=== PATIENT | male | born 1985 | race Two or more races ===

== ENCOUNTER 2021-03-19 16:18 | Emergency (ER) | payer MEDICAID ==
[~2021-03-19] VITALS: Ht 172.7 cm; Wt 111.6 kg
[2021-03-19] MEDS ORDERED: CEPHALEXIN 250 MG CAP PO ONE (19:45)
[2021-03-19] MEDS ORDERED: TETANUS-DIPTH-ACEL PERTUSSIS 0.5ML SYR Tdap IM ONE (19:45)
[2021-03-19] MEDS ORDERED: LIDOCAINE HCL 1 % PF INJ 2ML AMP IJ ONE (19:45)
[2021-03-19] MEDS ORDERED: LIDOCAINE 1% HCL (LOCAL ANESTH.) INJ 20ML MDV ONE (21:29)
[2021-03-19] MEDS ORDERED: CEPH-322 PO (22:27)
[2021-03-19] MEDS ORDERED: HYDR1TAB97 PO ×2 (22:27→22:29)
[2021-03-19] MEDS ORDERED: IBUP600T27 PO (22:27)
[2021-03-19] MEDS ORDERED: BACITRACIN TOP OINT 1 UD PKG TOP ONE (22:43)
[2021-03-19 23:03] VITALS: BP 140/76
== END 2021-03-19 22:45 | disposition home or self-care (01) ==
LOC: ER 16:18
DX: S61.221A Laceration with foreign body of left index finger without damage to nail, initial encounter (principal); Z79.1 Long term (current) use of non-steroidal anti-inflammatories (NSAID); Z79.2 Long term (current) use of antibiotics; Z79.899 Other long term (current) drug therapy; W25.XXXA Contact with sharp glass, initial encounter; Y93.89 Activity, other specified; Y92.89 Other specified places as the place of occurrence of the external cause; Y99.8 Other external cause status
CPT/HCPCS: 10120; 73140; 90471; 90715; 99284; J2001

== ENCOUNTER 2021-08-09 21:17 | Emergency (ER) | payer SELFPAY ==
[~2021-08-09] VITALS: Ht 172.7 cm; Wt 111.6 kg
[2021-08-09 21:17] VITALS: BP 151/94
[~2021-08-09 21:17] MED LIST: CEPH-322 PO; HYDR1TAB97 PO; IBUP600T27 PO
== END 2021-08-10 02:42 | disposition home or self-care (01) ==
LOC: ER 21:18
DX: S60.451A Superficial foreign body of left index finger, initial encounter (principal); X58.XXXA Exposure to other specified factors, initial encounter; Y93.89 Activity, other specified; Y92.89 Other specified places as the place of occurrence of the external cause; Y99.8 Other external cause status
CPT/HCPCS: 10120; 73140

== ENCOUNTER 2024-12-25 08:27 | Inpatient (IN) | payer MEDICAID, OTHER ==
[~2024-12-25] VITALS: Ht 172.7 cm; Wt 126.1 kg
[~2024-12-25 08:27] MED LIST changes: -CEPH-322 PO; +CEPH250C PO; +IBUP-1454 PO; -IBUP600T27 PO
[2024-12-25] MEDS: ONDANSETRON HCL 4 MG/2 ML VIAL IV ONE (08:55)
[2024-12-25] MEDS: TAMSULOSIN HYDROCHLORIDE 0.4 MG CAP PO ONE ×2 (08:56→14:36)
[2024-12-25] MEDS: SODIUM CHLORIDE 0.9% 1,000 ML IV ONE (09:03)
[2024-12-25 09:07] VITALS: PULSE 71; RESP 16; O2SAT 98
--- NOTE | 2024-12-25 09:14 | ED.PDOC ---
GI ASSESSMENT HPI Comments HPI: This is a 39 year old male presenting to the ED with chief complaint of abdominal pain. Patient reports that he has been experiencing left sided abdominal pain since yesterday. Patient relays that his pain resolved yesterday, however, this morning his pain returned while at work. Patient states that his pain is similar to previous kidney stones he had in the past. Patient denies any N/V/D, flank pain, dysuria, hematuria, or fever. Initial Vitals BP: 169/105 HR: 83 RR: 18 O2: 98% Temp: 98.1F Past Medical History: Kidney Stones, DM Past Surgical History: LASIK Social History: Denies ETOH, smoking, and drug use. Medications: None Allergies: NKDA HPI: Poor Historian. REVIEW OF SYSTEMS: CONSTITUTIONAL: Denies acute: fever, diaphoresis, chills, generalized weakness. HEAD: Denies acute: headache, photophobia Eyes: Denies acute: Double vision, vision loss, eye pain, eye discharge. EARS: Denies acute: tinnitus, hearing loss, ear discharge, ear pain, THROAT: Denies acute: sore throat, swelling, difficulty swallowing , pain with swallowing, change in voice. NECK: Denies acute: neck pain, neck swelling, stiff neck. HEART: Denies acute : chest pain, palpitations, LUNGS: Denies acute: SOB, wheezing, cough, hemoptysis ABDOMEN: Denies acute: Vomiting, diarrhea, melena , hematemesis, hematochezia SKIN: Denies acute: rash, redness, lesions, itchiness. EXTREMITIES: Denies acute: calf pain, numbness, tingling, weakness, denies pain in extremity. Denies acute: Low back pain. Neuro: Denies acute: focal neurological deficit, motor or sensory focal neurological deficit, tremors, seizure like activity, confusion, dizziness, change in mental status, loss of bowel or bladder function, cauda equina like symptoms. : Denies acute: dysuria, hematuria, flank pain, increase in urinary frequency. PSYCH: Denies acute: hallucination, suicidal ideation, homicidal ideation. PHYSICAL EXAM: General: ----moderate to severe----acute distress, awake and alert. Head: normocephalic, atraumatic. Neck: supple, trachea is midline, no swelling. Throat: Normal phonation. Eyes:, no erythema, no purulent discharge, no proptosis, no icterus. Heart: regular rate, regular rhythm, no significant murmur appreciated. Lungs: no apparent respiratory distress, Able to speak in full sentences. No wheezing, no rhonchi, no crackles. No stridors Clear to auscultation bilaterally. Abdomen: Right-sided tender to palpation, non distended, soft, no guarding, no rebound, + bowel sounds. Neuro: Awake, Alert, oriented to name, self, situation, follows commands GCS=15. Speech is normal. Skin: no petechia, no purpura, no cyanosis, non-pale, not jaundice. Lower extremities: --no - Pitting edema no deformity, no focal swelling, no calf TTP. Makes eye contact. moves all four extremities. Face: no apparent facial droop. No CVA tenderness to percussion bilaterally. Ambulating in the ED independently. ED COURSE: DISCLAIMER: This medical document was created using an electronic medical record system with voice recognition software and computerized dictation system. Although this document has been carefully reviewed, there might still be some phonetic and typographical errors. Occasional wrong-word or "sound-alike" substitutions may have occurred due to the inherent limitations of voice recognition software. These areas are purely typographical due to imperfections of the software programs and do not reflect any compromise in the patient's medical care. Please read the chart carefully and recognize, using context, where these substitutions have occurred. Chief Complaint: Abdominal Pain Time Seen by MD: 08:31 Primary Care Provider: ERNIE Reviewed Notes: Medications, Allergies Allergies: Coded Allergies: NO KNOWN ALLERGIES (Unverified , 03/19/21) Home Meds Active Scripts Hydrocodone-Acetaminophen (Hydrocodone/Acetaminophen 5-325 mg) 1 Tab Tab, 1 TAB PO Q6HPRN PRN for 1 Day, #4 TAB Prov:KATHARINE DICKINSON MD 03/19/21 Ibuprofen (Ibuprofen) 600 Mg Tab, 600 MG PO Q6HPRN PRN for 7 Days, #30 MG 0 Refills Prov:KATHARINE DICKINSON MD 03/19/21 Cephalexin (KEFLEX CAPSULE) 250 Mg Cp, 2 CAP PO QID for 7 Days, #2 CAP Take 2 caps PO QID x 7 days. Prov:KATHARINE DICKINSON MD 03/19/21 Information Source: Patient Mode of Arrival: Ambulatory Was a procedure done? Was a procedure done?: No X-Ray, Labs, Meds, VS Vital Signs Date Time Temp Pulse Resp B/P (MAP) Pulse Ox O2 Delivery O2 Flow Rate FiO2 12/25/24 09:50 149/95 12/25/24 09:07 71 16 98 Room Air* 0 21 12/25/24 08:28 98.1 83 18 169/105 98 98.1 Lab Test 12/25/24 08:54 Range/Units White Blood Count 8.4 4.4-10.8 10^3/uL Red Blood Count 5.87 4.5-5.90 10^6/uL Hemoglobin 17.3 13.5-17.5 g/dL Hematocrit 50.5 41.0-53.0 % Mean Corpuscular Volume 86.1 80.0-100.0 fL Mean Corpuscular Hemoglobin 29.5 28.0-32.0 pg Mean Corpuscular Hemoglobin Concent 34.3 32.0-36.0 g/dL Red Cell Distribution Width 13.6 11.8-14.3 % Platelet Count 221 140-450 10^3/uL Mean Platelet Volume 9.0 6.9-10.8 fL Neutrophils (%) (Auto) 59.0 37.0-80.0 % Lymphocytes (%) (Auto) 32.5 10.0-50.0 % Monocytes (%) (Auto) 6.9 0.0-12.0 % Eosinophils (%) (Auto) 0.9 0.0-7.0 % Basophils (%) (Auto) 0.7 0.0-2.0 % Neutrophils # (Auto) 4.9 1.6-8.6 10 ^3/uL Lymphocytes # (Auto) 2.7 0.4-5.4 10 ^3/uL Monocytes # (Auto) 0.6 0-1.3 10 ^3/uL Eosinophils # (Auto) 0.1 0-0.8 10 ^3/uL Basophils # (Auto) 0.1 0-0.2 10 ^3/uL Nucleated Red Blood Cells 0.1 % Sodium Level 139 136-145 mmol/L Potassium Level 3.9 3.5-5.1 mmol/L Chloride Level 106 98-107 mmol/L Carbon Dioxide Level 25 20-31 mmol/L Anion Gap 8 5-15 Blood Urea Nitrogen 8 L 9-23 mg/dL Creatinine 1.10 0.700-1.30 mg/dL Glomerular Filtration Rate Calc 87 >90 mL/min BUN/Creatinine Ratio 7.3 L 10.0-20.0 Serum Glucose 183 H 74-106 mg/dL Lactic Acid Level 1.6 0.4-2.0 mmol/L Calcium Level 9.5 8.7-10.4 mg/dL Total Bilirubin 0.8 0.2-1.0 mg/dL Aspartate Amino Transferase (AST) 67 H 13-40 U/L Alanine Aminotransferase (ALT) 96 H 7-40 U/L Alkaline Phosphatase 162 H 46-116 U/L Troponin I High Sensitivity 4 </=54 ng/L Total Protein 7.9 5.7-8.2 g/dL Albumin 4.9 H 3.2-4.8 g/dL Lipase Pending Current Medications Medications (Trade) Dose Ordered Sig/Pavan Route Start Time Stop Time Status Last Admin Sodium Chloride 1,000 ml @ 1,000 mls/hr Q1H ONCE IV 12/25/24 09:00 12/25/24 09:59 12/25/24 09:03 Ondansetron HCl (Zofran) 8 mg ONCE ONCE IV 12/25/24 09:00 12/25/24 09:01 DC 12/25/24 08:55 Tamsulosin HCl (Flomax) 0.4 mg ONCE ONCE PO 12/25/24 09:00 12/25/24 09:01 DC 12/25/24 08:56 Fentanyl Citrate 100 mcg ONCE ONCE IV 12/25/24 09:15 12/25/24 09:16 DC 12/25/24 09:50 Time of 1ST Reevaluation: 10:10 Reevaluation 1ST: Unchanged Patient Education/Counseling: Diagnosis, Treatment Family Education/Counseling: No Family Present Departure 1 Departure Time of Disposition: 09:54 Impression: Primary Impression: Hydronephrosis with renal and ureteral calculous obstruction Additional Impression: Hydroureteronephrosis Disposition: ADMITTED INPATIENT Admit to: [facility] Condition: Guarded Discharged With: Self Critical Care Note Critical Care Time?: No I personally scribed for HUGO MADDEN DO ([email or web address]) on 12/25/24 at 09:14. Electronically submitted by Lemuel Stephen ([email or web address]). HUGO MADDEN DO Dec 25, 2024 09:14
[2024-12-25 09:23] LABS: Hematocrit 50.5 % (41.0-53.0); Hemoglobin 17.3 g/dL (13.5-17.5); Mean Corpuscular Hemoglobin 29.5 pg (28.0-32.0); Mean Corpuscular Volume 86.1 fL (80.0-100.0); Nucleated Red Blood Cells % 0.1 %
[2024-12-25 09:37] LABS: Anion Gap 8 (5-15); BUN/Creatinine Ratio 7.3 (10.0-20.0); Calcium 9.5 mg/dL (8.7-10.4); Carbon Dioxide 25 mmol/L (20-31); Chloride 106 mmol/L (98-107); Potassium 3.9 mmol/L (3.5-5.1); Sodium 139 mmol/L (136-145); Total Protein 7.9 g/dL (5.7-8.2)
[2024-12-25 09:38] LABS: Bilirubin, Total 0.8 mg/dL (0.2-1.0)
[2024-12-25 09:44] LABS: Alanine Aminotransferase 96 U/L (7-40); Albumin 4.9 g/dL (3.2-4.8); Alkaline Phosphatase 162 U/L (46-116); Blood Urea Nitrogen 8 mg/dL (9-23); Glucose 183 mg/dL (74-106)
--- NOTE | 2024-12-25 09:49 | DVH ---
Exam: CT CT AB PEL WO CON-NO ORAL OR IV History: LUQ pain h/o Kid stones Comparison Study: None Technique: Multidetector spiral CT of the abdomen was performed from lung bases to pubic symphysis. I maging was performed without IV contrast. Axial, coronal and sagittal multiplanar reformats were obta ined from the axial data set by the technologist. Radiation Dose : 1. Abdomen/Pelvis: CTDIvol 26.32 mGy, DLP 1618.84 mGy*cm. Findings: Evaluation of solid organs is limited due to lack of intravenous contrast use. Lung Bases: No acute or significant lung base finding. Normal heart size. No pleural or pericardial effusion. Liver: The liver is enlarged, measuring 23.0 cm in craniocaudal dimension. Diffuse hepatic steatosis. No focal lesions. Gallbladder and Biliary Tree: Unremarkable Spleen: Unremarkable Pancreas: The pancreas is grossly normal in appearance. Adrenal Glands: Unremarkable Kidneys: Moderate left hydroureteronephrosis secondary to a partially obstructing distal ureteral peña culus measuring approximately 3 mm just proximal to the level of the ureterovesicular junction. The r ight kidney is grossly normal without calculi or hydronephrosis. Bladder: Grossly unremarkable for degree of distention. Bowel: The stomach is grossly normal in appearance. Small bowel and colon are normal in caliber and d istribution. The appendix is not visualized; however, no secondary findings of acute appendicitis aron ntified. Ascites: Absent Lymphadenopathy: No mesenteric, retroperitoneal or periportal lymphadenopathy. Abdominal Wall and Mesentery: Unremarkable. Vasculature: The visualized abdominal aorta is normal in size and caliber. Evaluation of abdominal a nd pelvic vessels is limited due to lack of intravenous contrast. Pelvic Organs: Unremarkable Musculoskeletal: No aggressive focal bony lesions, acute fractures or dislocation. IMPRESSION: 1. Moderate left hydroureteronephrosis secondary to a partially obstructing distal ureteral calculus just proximal to the level of the ureterovesicular junction. 2. Hepatomegaly and hepatic steatosis. Radiation optimization: All CT scans at this facility use at least one of these dose optimization rip hniques: automated exposure control mA and/or kV adjustment per patient size (includes targeted exam s where dose is matched to clinical indication) or iterative reconstruction.
[2024-12-25] MEDS: fentaNYL CITRATE 100 MCG/2 ML VL IV ONE (09:50)
[2024-12-25] MEDS: cefTRIAXone 1GM/50ML D5W 50 ML IV ONE ×2 (10:24→13:22)
[2024-12-25 10:29] LABS: Lipase 35 U/L (12-53)
[2024-12-25 11:03] LABS: Urine Protein, UAD 1+ (Negative); Urine WBC Clumps PRESENT /hpf (None Seen)
[2024-12-25] MEDS ORDERED: NITROGLYCERIN 0.4 MG SL TAB SL PRN (12:15)
[2024-12-25] MEDS ORDERED: DOCUSATE SOD 100 MG CAP PO PRN (12:15)
[2024-12-25] MEDS ORDERED: KETOROLAC TROMETH 30 MG/ML 1ML VIAL IV PRN (12:15)
[2024-12-25] MEDS ORDERED: ONDANSETRON HCL 4 MG/2 ML VIAL IV PRN (12:15)
[2024-12-25] MEDS ORDERED: DEXTROSE (50%) 50ML SYRG IV PRN (12:15)
--- NOTE | 2024-12-25 12:22 | DVHHP2 ---
History of Present Illness Reason for Visit: Abdominal pain History of Present Illness 39-year-old male past medical history diabetes kidney stones Lasix surgery chief complaint patient comes in with left flank pain he has been going on 2-1/2 hours prior to arrival he stated it started yesterday it self-resolved but when he was at work the pain got more worse it was like a sharp pain patient states he had this symptom before three years ago that was given him some Flomax and they did a urology procedure he currently denies any chest pain no shortness with the breath denies any blood in urination but difficulty with nerve urination patient states the pain is stabbing movement makes the pain worse nothing improves the pain when in ED patient was given ceftriaxone Flagyl Flomax Zofran normal saline CBC was unremarkable glucose was elevated at 183 AST was 61 ALT mild elevation alkaline phosphatase [address] scan of the abdomen pelvis shows moderate left hydronephrosis secondary to partial obstructing distal stone in the uvj hepatomegaly hepatic steatosis with these findings we will admit and ask for Urology evaluatio. Past Medical History See HPI above Past Surgical History See HPI above Family History Reviewed, non-contributory to the management of this case. Past Social History The patient lives at home, denies smoking, alcohol or illicit drugs abuse. Review of Systems Constitutional: No: Fever, Chills, Sweats, Weakness, Malaise, Other Eyes: No: Pain, Vision change, Conjunctivae inflammation, Eyelid inflammation, Other, Redness ENT: No: Ear pain, Ear discharge, Nose pain, Nose discharge, Nose congestion, Mouth pain, Mouth swelling, Throat pain, Throat swelling, Other Respiratory: No: Cough, Dry, Shortness of breath, SOB with excertion, Wheezing, Hemoptysis, Pleuritic Pain, Sputum, Wheezing, Other Cardiovascular: No: Chest Pain, Palpitations, Orthopnea, Paroxysmal Noc. Dyspnea, Edema, Lt Headedness, Other Gastrointestinal: Nausea, Vomiting, Abdominal Pain; No: Diarrhea, Constipation, Melena, Hematochezia, Other Genitourinary: Dysuria; No Frequency, No Incontinence, No Hematuria, No Retention, No Other Musculoskeletal: No: other, neck pain, shoulder pain, arm pain, back pain, hand pain, leg pain, foot pain Skin: No: Rash, Lesions, Jaundice, Bruising, Other Neurological: No: Weakness, Numbness, Incoordination, Change in speech, Confus ion, Seizures, Other Allergies: Coded Allergies: NO KNOWN ALLERGIES (Unverified , 03/19/21) Exam Vital Signs Vital Signs Date Time Temp Pulse Resp B/P (MAP) Pulse Ox O2 Delivery O2 Flow Rate FiO2 12/25/24 10:26 98.4 77 16 145/89 (107) 97 98.4 12/25/24 09:07 Room Air* 0 21 General Appearance: Alert, Oriented X3, Cooperative, No acute distress HEENT: Atraumatic, PERRLA, EOMI, Mucous membr. moist/pink Respiratory: Clear to auscultation, Normal air movement Cardiovascular: Regular rate, Normal S1, Normal S2, No murmurs Abdominal: Normal bowel sounds, Soft, No tenderness, No hepatospenomegaly, No masses, Other (Left CVA tenderness) Extremities: No clubbing, No cyanosis, No edema, Normal pulses, No tenderness/swelling Skin: No rashes, No breakdown, No significant lesion Neuro: Normal gait, Normal speech, Strength at 5/5 X4 ext, Normal tone, Sensation intact, Cranial nerves 3-12 NL Psych/Mental Status: Mental status NL, Mood NL Labs/Xrays CT scan abdomen pelvis shows left hydronephrosis with secondary partially obstructing kidney stone in the distal ureter I reviewed labs, imaging CT scan abdomen pelvis, EKG and all diagnostic studies on this patient from ED records and the medical chart Labs Test 12/25/24 08:54 12/25/24 08:35 Range/Units White Blood Count 8.4 4.4-10.8 10^3/uL Red Blood Count 5.87 4.5-5.90 10^6/uL Hemoglobin 17.3 13.5-17.5 g/dL Hematocrit 50.5 41.0-53.0 % Mean Corpuscular Volume 86.1 80.0-100.0 fL Mean Corpuscular Hemoglobin 29.5 28.0-32.0 pg Mean Corpuscular Hemoglobin Concent 34.3 32.0-36.0 g/dL Red Cell Distribution Width 13.6 11.8-14.3 % Platelet Count 221 140-450 10^3/uL Mean Platelet Volume 9.0 6.9-10.8 fL Neutrophils (%) (Auto) 59.0 37.0-80.0 % Lymphocytes (%) (Auto) 32.5 10.0-50.0 % Monocytes (%) (Auto) 6.9 0.0-12.0 % Eosinophils (%) (Auto) 0.9 0.0-7.0 % Basophils (%) (Auto) 0.7 0.0-2.0 % Neutrophils # (Auto) 4.9 1.6-8.6 10 ^3/uL Lymphocytes # (Auto) 2.7 0.4-5.4 10 ^3/uL Monocytes # (Auto) 0.6 0-1.3 10 ^3/uL Eosinophils # (Auto) 0.1 0-0.8 10 ^3/uL Basophils # (Auto) 0.1 0-0.2 10 ^3/uL Nucleated Red Blood Cells 0.1 % Sodium Level 139 136-145 mmol/L Potassium Level 3.9 3.5-5.1 mmol/L Chloride Level 106 98-107 mmol/L Carbon Dioxide Level 25 20-31 mmol/L Anion Gap 8 5-15 Blood Urea Nitrogen 8 L 9-23 mg/dL Creatinine 1.10 0.700-1.30 mg/dL Glomerular Filtration Rate Calc 87 >90 mL/min BUN/Creatinine Ratio 7.3 L 10.0-20.0 Serum Glucose 183 H 74-106 mg/dL Lactic Acid Level 1.6 0.4-2.0 mmol/L Calcium Level 9.5 8.7-10.4 mg/dL Total Bilirubin 0.8 0.2-1.0 mg/dL Aspartate Amino Transferase (AST) 67 H 13-40 U/L Alanine Aminotransferase (ALT) 96 H 7-40 U/L Alkaline Phosphatase 162 H 46-116 U/L Troponin I High Sensitivity 4 </=54 ng/L Total Protein 7.9 5.7-8.2 g/dL Albumin 4.9 H 3.2-4.8 g/dL Lipase 35 12-53 U/L Urine Color Light-orange Yellow Urine Clarity Ex.turbid Clear Urine pH 5.5 5.0-9.0 Urine Specific Bath 1.031 1.001-1.035 Urine Protein 1+ H Negative Urine Ketones Negative Negative Urine Blood 2+ H Negative /uL Urine Nitrite Negative Negative Urine Bilirubin Negative Negative Urine Urobilinogen Normal Negative mg/dL Urine Leukocyte Esterase Negative Negative /uL Urine RBC 12 0 - 3 /hpf Urine WBC Clumps Present None Seen /hpf Urine Microscopic WBC 141 H 0-3 /HPF Urine Squamous Epithelial Cells None seen <5 /hpf Urine Bacteria None seen None Seen /hpf Urine Mucus Few None Seen Urine Glucose Trace Normal mg/dL SEPSIS Sepsis Screen Date sepsis recognized/suspect: Dec 25, 2024 Time Sepsis recognized/suspect: 828 Recent Procedure: No On Antibiotic Therapy: No Respiratory Rate >20: No Heart Rate >90: No Temp<36 C (96.8 F) or >38.3 C: No SBP <90 or MAP <65 mmHG: No New Acute Mental Status Change: No Is the patient on CPAP, BIPAP,: No Physician Orders Global Expansion Sales Director (12/25/24 ) Ct Ab Pel Wo Con-No Oral Or Iv (12/25/24 08:47) Electrocardigram (12/25/24 08:47) Admit (12/25/24 12:15) Allergies (12/25/24 12:15) Code Status (12/25/24 12:15) 0.9% Ns 1000 Ml (12/25/24 12:15) Ondansetron Hcl (Zofran) (12/25/24 12:15) Docusate Sodium Capsule (Colace Capsule) (12/25/24 12:15) Complete Blood Count (12/26/24 04:00) Comprehensive Metabolic Panel (12/26/24 04:00) Condition: Stable (12/25/24 12:15) BRP (12/25/24 12:15) Morphine Sulfate Injection (12/25/24 12:15) Sequential Compression Device (12/25/24 ) Nitroglycerin Sublingual (Ntrostat Subli (12/25/24 12:15) Stat Ekg For Chest Pain (12/25/24 12:15) Notify Md Of Changes From Base (12/25/24 12:15) Muffler Installer For 24 Hours (12/25/24 12:15) Emergency Dysrhythmia Protocol (12/25/24 12:15) Rhythm Strips Once Every Shift (12/25/24 12:15) Oxygen By Nasal Cannula (12/25/24 12:15) Tamsulosin Hydrochloride (Flomax) (12/25/24 12:15) Tamsulosin Hydrochloride (Flomax) (12/25/24 18:00) Ketorolac Injection (Toradol Injection) (12/25/24 12:15) Glucose Blood (Accu-Chek Comfort Curve T (12/25/24 17:00) Mild Sliding Scale (12/25/24 17:00) Dextrose 50% Syringe (12/25/24 12:15) Ceftriaxone Ivpb Rocephin (12/26/24 09:00) Ceftriaxone Ivpb Rocephin (12/25/24 12:15) Vital Signs Date Time Temp Pulse Resp B/P (MAP) Pulse Ox O2 Delivery O2 Flow Rate FiO2 12/25/24 10:26 98.4 77 16 145/89 (107) 97 98.4 12/25/24 09:50 149/95 12/25/24 09:07 71 16 98 Room Air* 0 21 12/25/24 08:28 98.1 83 18 169/105 98 98.1 Laboratory Tests Test 12/25/24 08:54 Lactic Acid Level 1.6 mmol/L (0.4-2.0) White Blood Count 8.4 10^3/uL (4.4-10.8) Medications Medications Dose Ordered Sig/Pavan Route Start Time Stop Time Status Last Admin Dose Admin Ceftriaxone Sodium 50 ml @ 100 mls/hr ONCE ONCE IV 12/25/24 10:00 12/25/24 10:29 DC 12/25/24 10:24 100 MLS/HR Fentanyl Citrate 100 mcg ONCE ONCE IV 12/25/24 09:15 12/25/24 09:16 DC 12/25/24 09:50 100 MCG Ondansetron HCl 8 mg ONCE ONCE IV 12/25/24 09:00 12/25/24 09:01 DC 12/25/24 08:55 8 MG Sodium Chloride 1,000 ml @ 1,000 mls/hr Q1H ONCE IV 12/25/24 09:00 12/25/24 09:59 DC 12/25/24 09:03 1,000 MLS/HR Tamsulosin HCl 0.4 mg ONCE ONCE PO 12/25/24 09:00 12/25/24 09:01 DC 12/25/24 08:56 0.4 MG Assessment/Plan Assessment/Plan Acute left obstructing stone 2/[address] scan found ot have left pelviectasis ua with bacteria and leuks ordered urine culture fu results ordered toradol x3 days ordered levaquin for now ordered ivf strict i/o's ordered morphine as needed for pain ordered flomax ordered urology consult acute transaminitis likely hepatomegaly/hepatitic outpt follow up with gi chronic problems dm ISS fen/ppx diet toradol ivf no gi ppx since no hx of gerds or gi bleed no dvt ppx since pt is ambulatory plan admit to medicine for iv antibiotics for infection Plan discussed with: Patient My Orders Orders - DAIN KAY DNP Procedure Category Date Status Time Admit ADMIT 12/25/24 Transmitted 12:15 Allergies TONEY 12/25/24 Transmitted 12:15 Code Status CODE 12/25/24 Transmitted 12:15 0.9% Ns 1000 Ml PHA 12/25/24 Transmitted 12:15 Ondansetron Hcl PHA 12/25/24 Transmitted (Zofran) 12:15 Docusate Sodium PHA 12/25/24 Transmitted Capsule (Colace 12:15 Complete Blood Count LAB 12/26/24 Verified 04:00 Comprehensive LAB 12/26/24 Verified Metabolic Panel 04:00 Condition: Stable TONEY 12/25/24 Transmitted 12:15 BRP TONEY 12/25/24 Transmitted 12:15 Morphine Sulfate PHA 12/25/24 Transmitted Injection 12:15 Sequential TONEY 12/25/24 Transmitted Compression Device Nitroglycerin PHA 12/25/24 Transmitted Sublingual (Ntrostat 12:15 Stat Ekg For Chest TONEY 12/25/24 Transmitted Pain 12:15 Notify Md Of Changes TONEY 12/25/24 Transmitted From Base 12:15 Muffler Installer For TONEY 12/25/24 Transmitted 24 Hours 12:15 Emergency Dysrhythmia TONEY 12/25/24 Transmitted Protocol 12:15 Rhythm Strips Once TONEY 12/25/24 Transmitted Every Shift 12:15 Oxygen By Nasal RT 12/25/24 Transmitted Cannula 12:15 Tamsulosin PHA 12/25/24 Transmitted Hydrochloride (Flomax) 12:15 Tamsulosin PHA 12/25/24 Transmitted Hydrochloride (Flomax) 18:00 Ketorolac Injection PHA 12/25/24 Transmitted (Toradol Injection) 12:15 Glucose Blood PHA 12/25/24 Transmitted (Accu-Chek Comfort 17:00 Mild Sliding Scale PHA 12/25/24 Transmitted 17:00 Dextrose 50% Syringe PHA 12/25/24 Transmitted 12:15 Ceftriaxone Ivpb PHA 12/26/24 Transmitted Rocephin 09:00 Ceftriaxone Ivpb PHA 12/25/24 Transmitted Rocephin 12:15 Date of Service: Dec 25, 2024 Billing Provider: DAIN KAY DNP Common Visit Codes: [id number] INP/OBS CARE (HIGH) DAIN KAY [facility] Dec 25, 2024 12:22
[2024-12-25] MEDS: SODIUM CHLORIDE 0.9% 1,000 ML IV SCH (13:22)
[2024-12-25 14:00] VITALS: BP 128/59; PULSE 88; RESP 18; TEMP 98; O2SAT 94
[2024-12-25] MEDS: MORPHINE SULFATE INJ 2 MG/ml SYRG IV PRN (14:18)
[2024-12-25] MEDS ORDERED: METF-370 PO (14:51)
[2024-12-25 16:40] VITALS: BP 126/79; PULSE 85; RESP 16; TEMP 97.2; O2SAT 96
[2024-12-25] MEDS: TAMSULOSIN HYDROCHLORIDE 0.4 MG CAP PO SCH (16:53)
[2024-12-25] MEDS: ACCU-CHEK COMFORT CURVE STRIP VI SCH (16:57)
[2024-12-25] MEDS: InsuLIN REG 1unit/0.01ml Soln (100units/ml) SC SCH (16:58)
[2024-12-25] MEDS: KETOROLAC TROMETH 30 MG/ML 1ML VIAL IV PRN (18:13)
[2024-12-25 20:00] VITALS: PULSE 90; RESP 18; O2SAT 96
[2024-12-25 21:00] VITALS: BP 120/73; PULSE 91; RESP 17; TEMP 98.2; O2SAT 96
[2024-12-26] VITALS (8 sets, daily range): BP systolic 113–143; BP diastolic 72–89; PULSE 77–109; RESP 18–20; TEMP 97.3–98.5; O2SAT 94–97
[2024-12-26 06:01] LABS: Hematocrit 42.4 % (41.0-53.0); Hemoglobin 14.8 g/dL (13.5-17.5); Mean Corpuscular Hemoglobin 30.0 pg (28.0-32.0); Mean Corpuscular Volume 85.8 fL (80.0-100.0); Nucleated Red Blood Cells % 0.1 %
[2024-12-26 06:10] LABS: Albumin 4.0 g/dL (3.2-4.8); Anion Gap 10 (5-15); BUN/Creatinine Ratio 15.4 (10.0-20.0); Blood Urea Nitrogen 14 mg/dL (9-23); Carbon Dioxide 23 mmol/L (20-31); Chloride 106 mmol/L (98-107); Potassium 3.9 mmol/L (3.5-5.1); Sodium 139 mmol/L (136-145); Total Protein 6.4 g/dL (5.7-8.2)
[2024-12-26 06:11] LABS: Alanine Aminotransferase 66 U/L (7-40); Alkaline Phosphatase 122 U/L (46-116); Bilirubin, Total 0.4 mg/dL (0.2-1.0); Calcium 8.4 mg/dL (8.7-10.4); Glucose 178 mg/dL (74-106)
[2024-12-26] MEDS: cefTRIAXone 1GM/50ML D5W 50 ML IV SCH (09:33)
--- NOTE | 2024-12-26 14:18 | DVHPN2 ---
Subjective Patient doing better, seen at bedside today. Changes from previous H/P or p: No Changes General: Per HPI Eyes: No Pain, No Vision change, No Conjunctivae inflammation, No Eyelid inflammation, No Other, No Redness ENT: No Ear pain, No Ear discharge, No Nose pain, No Nose discharge, No Nose congestion, No Mouth pain, No Mouth swelling, No Throat pain, No Throat swelling, No Other Cardiovascular: No Chest Pain, No Palpitations, No Orthopnea, No Paroxysmal Noc. Dyspnea, No Edema, No Lt Headedness, No Other Respiratory: No Cough, No Dry, No Shortness of breath, No SOB with excertion, No Wheezing, No Hemoptysis, No Pleuritic Pain, No Sputum, No Other Gastrointestinal: Nausea, Vomiting, Abdominal Pain; No Diarrhea, No Constipation, No Melena, No Hematochezia, No Other Genitourinary: Dysuria; No Frequency, No Incontinence, No Hematuria, No Retention, No Other Musculoskeletal: No other, No neck pain, No shoulder pain, No arm pain, No back pain, No hand pain, No leg pain, No foot pain Skin: No Rash, No Lesions, No Jaundice, No Bruising, No Other Objective Vitals Vital Signs Date Time Temp Pulse Resp B/P (MAP) Pulse Ox O2 Delivery O2 Flow Rate FiO2 12/26/24 09:00 97.3 77 18 113/75 (88) 94 97.3 12/26/24 08:00 Room Air* 0 21 Intake/Output Intake and Output 12/26/24 07:00 Intake Total 1600 ml Balance 1600 ml Intake Oral 600 ml IV Total 1000 ml # Voids 11 Exam GEN: Healthy appearing, well-developed, NAD. HEENT: NC/AT; MMM. CV: RRR, no m/r/g. LUNGS: CTAB, no w/r/c. ABD: Soft, NT/ND, NBS, no masses or organomegaly. EXT: skin Warm, well perfused. no rashes. No clubbing, cyanosis, or edema. NEURO: Ambulating with no limitations. No focal deficits. Medications Current Medications Medications Dose Ordered Sig/Pavan Route Start Time Stop Time Status Last Admin Dose Admin Sodium Chloride 1,000 ml @ 120 mls/hr Q8H20M IV 12/25/24 12:15 12/26/24 12:40 120 MLS/HR Ondansetron HCl 4 mg Q4HP PRN IV 12/25/24 12:15 Docusate Sodium 100 mg BIDPRN PRN PO 12/25/24 12:15 Morphine Sulfate 2 mg Q4HPRN PRN IV 12/25/24 12:15 12/25/24 14:18 2 MG Nitroglycerin 0.4 mg Q5MINP PRN SL 12/25/24 12:15 Tamsulosin HCl 0.4 mg QPM PO 12/25/24 18:00 12/25/24 16:53 0.4 MG Diagnostic Test (Pha) 1 strip ACHS 12/25/24 17:00 12/26/24 11:54 1 STRIP Insulin Human Regular ACHS SC 12/25/24 17:00 12/26/24 12:20 3 UNITS Dextrose 50 ml UD PRN IV 12/25/24 12:15 Ceftriaxone Sodium 50 ml @ 100 mls/hr DAILY@09 IV 12/26/24 09:00 12/26/24 09:33 100 MLS/HR Acetaminophen/ Hydrocodone Bitart 1 tab Q6HP PRN PO 12/26/24 13:30 Laboratory Results Laboratory Tests 12/26/24 04:18 Chemistry Test 12/26/24 04:18 Albumin 4.0 g/dL (3.2-4.8) Calcium Level 8.4 mg/dL (8.7-10.4) L Total Protein 6.4 g/dL (5.7-8.2) LFT Test 12/26/24 04:18 Alanine Aminotransferase (ALT) 66 U/L (7-40) H Alkaline Phosphatase 122 U/L (46-116) H Aspartate Amino Transferase (AST) 41 U/L (13-40) H Total Bilirubin 0.4 mg/dL (0.2-1.0) Urinalysis Test 12/25/24 08:35 Urine Color Light-orange (Yellow) Urine Clarity Ex.turbid (Clear) Urine pH 5.5 (5.0-9.0) Urine Specific [place] 1.031 (1.001-1.035) Urine Protein 1+ (Negative) H Urine Ketones Negative (Negative) Urine Blood 2+ /uL (Negative) H Urine Nitrite Negative (Negative) Urine Bilirubin Negative (Negative) Urine Urobilinogen Normal mg/dL (Negative) Urine Leukocyte Esterase Negative /uL (Negative) Urine RBC 12 /hpf (0 - 3) Urine WBC Clumps Present /hpf (None Seen) Urine Microscopic WBC 141 /HPF (0-3) H Urine Squamous Epithelial Cells None seen /hpf (<5) Urine Bacteria None seen /hpf (None Seen) Urine Mucus Few (None Seen) Urine Glucose Trace mg/dL (Normal) Labs and/or images reviewed: Labs reviewed by me, Image(s) reviewed by me Assessment/Plan Assessment/Plan 39-year-old male past medical history diabetes kidney stones Lasix surgery chief complaint patient comes in with left flank pain he has been going on 2-1/2 hours prior to arrival he stated it started yesterday it self-resolved but when he was at work the pain got more worse it was like a sharp pain patient states he had this symptom before three years ago that was given him some Flomax and they did a urology procedure he currently denies any chest pain no shortness with the breath denies any blood in urination but difficulty with nerve urination patient states the pain is stabbing movement makes the pain worse nothing improves the pain when in ED patient was given ceftriaxone Flagyl Flomax Zofran normal saline CBC was unremarkable glucose was elevated at 183 AST was 61 ALT mild elevation alkaline phosphatase [address] scan of the abdomen pelvis shows moderate left hydronephrosis secondary to partial obstructing distal stone in the uvj hepatomegaly hepatic steatosis with these findings we will admit and ask for Urology evaluatio. 12/26: Patient here for left obstructing stone with hydronephrosis. Feeling better tolerating p.o. now. We will reassess tomorrow to see need for ultrasound. Left obstructive nephrolithiasis Intractable flank pain due to above We will intolerance Transaminitis ALP elevated Diabetes History of renal stones -IV fluids -IV antibiotics ceftriaxone -prn pain control -prn Zofran for nausea -Flomax 0.4 mg q.a.m. Diabetic diet Med surge Full code Plan discussed with: Patient My Orders Orders - CELSO CERVANTES MD Procedure Category Date Status Time * Urology Consult CONS 12/26/24 Transmitted 12:11 Hydrocodone-Acet PHA 12/26/24 In Process 10/325mg Tab ([place] 13:30 Date of Service: Dec 26, 2024 Billing Provider: CELSO CERVANTES MD Common Visit Codes: [id number] INP/OBS CARE(HIGH) ECLSO CERVANTES MD Dec 26, 2024 14:18
[2024-12-26] MEDS: HYDROcodone-ACET 10/325MG TAB PO PRN (15:22)
[2024-12-27 01:00] VITALS: BP_SYST 119; BP_SYST 139; BP_DIAS 69; BP_DIAS 93; PULSE 104; PULSE 80; RESP 18; TEMP 97.3; TEMP 97.9; O2SAT 95
[2024-12-27] MEDS: SODIUM CHLORIDE 0.9% 1,000 ML IV SCH (01:00)
[2024-12-27 05:00] VITALS: BP 116/79; PULSE 76; RESP 19; TEMP 97.6; O2SAT 96
[2024-12-27 08:00] VITALS: RESP 18; O2SAT 96
[2024-12-27 08:13] LABS: Albumin 4.0 g/dL (3.2-4.8); Alkaline Phosphatase 108 U/L (46-116); Anion Gap 10 (5-15); BUN/Creatinine Ratio 9.6 (10.0-20.0); Carbon Dioxide 24 mmol/L (20-31); Chloride 104 mmol/L (98-107); Potassium 3.8 mmol/L (3.5-5.1); Sodium 138 mmol/L (136-145); Total Protein 6.6 g/dL (5.7-8.2)
[2024-12-27 08:14] LABS: Alanine Aminotransferase 59 U/L (7-40); Bilirubin, Total 0.6 mg/dL (0.2-1.0); Blood Urea Nitrogen 8 mg/dL (9-23); Calcium 8.6 mg/dL (8.7-10.4); Glucose 154 mg/dL (74-106)
[2024-12-27 09:00] VITALS: BP 127/82; PULSE 76; RESP 20; TEMP 97.5; O2SAT 94
--- NOTE | 2024-12-27 11:29 | DVH ---
CLINICAL HISTORY: left side kidney stone TECHNIQUE: Complete ultrasound exam of the kidneys and bladder was performed. COMPARISON: None FINDINGS: The right kidney has normal echogenicity and measures 13.8 cm. There is no focal parenchymal abnormal ity or evidence for stone. There is no hydronephrosis. The left kidney has normal echogenicity and measures 13.8 cm. There is no focal parenchymal abnormal ity or evidence for stone. There is no hydronephrosis. The bladder is grossly unremarkable. IMPRESSION: NO SIGNIFICANT SONOGRAPHIC ABNORMALITY OF THE KIDNEYS.
[2024-12-27 13:00] VITALS: BP 143/89; PULSE 90; RESP 20; TEMP 97.5; O2SAT 98
[2024-12-27] MEDS ORDERED: HYDR-4798 PO (15:53)
[2024-12-27] MEDS ORDERED: TAMS0.4C39 PO (15:53)
[2024-12-27] MEDS ORDERED: ZOFR4T PO (15:53)
--- NOTE | 2024-12-27 16:00 | DVHDS2 ---
Discharge Summary Date of Admission Dec 25, 2024 at 12:15 Date of Discharge: Dec 27, 2024 Labs/Diagnostic Data: Laboratory Results Test 12/27/24 11:13 12/27/24 06:36 12/26/24 04:18 12/25/24 08:54 POC Glucose 140 mg/dl (70-106) Sodium Level 138 mmol/L (136-145) Potassium Level 3.8 mmol/L (3.5-5.1) Chloride Level 104 mmol/L (98-107) Carbon Dioxide Level 24 mmol/L (20-31) Anion Gap 10 (5-15) Blood Urea Nitrogen 8 mg/dL (9-23) Creatinine 0.83 mg/dL (0.700-1.30) Glomerular Filtration Rate Calc 113 mL/min (>90) BUN/Creatinine Ratio 9.6 (10.0-20.0) Serum Glucose 154 mg/dL (74-106) Calcium Level 8.6 mg/dL (8.7-10.4) Total Bilirubin 0.6 mg/dL (0.2-1.0) Aspartate Amino Transferase (AST) 38 U/L (13-40) Alanine Aminotransferase (ALT) 59 U/L (7-40) Alkaline Phosphatase 108 U/L (46-116) Total Protein 6.6 g/dL (5.7-8.2) Albumin 4.0 g/dL (3.2-4.8) White Blood Count 7.5 10^3/uL (4.4-10.8) Red Blood Count 4.94 10^6/uL (4.5-5.90) Hemoglobin 14.8 g/dL (13.5-17.5) Hematocrit 42.4 % (41.0-53.0) Mean Corpuscular Volume 85.8 fL (80.0-100.0) Mean Corpuscular Hemoglobin 30.0 pg (28.0-32.0) Mean Corpuscular Hemoglobin Concent 34.9 g/dL (32.0-36.0) Red Cell Distribution Width 13.4 % (11.8-14.3) Platelet Count 187 10^3/uL (140-450) Mean Platelet Volume 9.2 fL (6.9-10.8) Neutrophils (%) (Auto) 53.1 % (37.0-80.0) Lymphocytes (%) (Auto) 37.9 % (10.0-50.0) Monocytes (%) (Auto) 6.8 % (0.0-12.0) Eosinophils (%) (Auto) 1.8 % (0.0-7.0) Basophils (%) (Auto) 0.4 % (0.0-2.0) Neutrophils # (Auto) 4.0 10 ^3/uL (1.6-8.6) Lymphocytes # (Auto) 2.8 10 ^3/uL (0.4-5.4) Monocytes # (Auto) 0.5 10 ^3/uL (0-1.3) Eosinophils # (Auto) 0.1 10 ^3/uL (0-0.8) Basophils # (Auto) 0 10 ^3/uL (0-0.2) Nucleated Red Blood Cells 0.1 % Lactic Acid Level 1.6 mmol/L (0.4-2.0) Troponin I High Sensitivity 4 ng/L (</=54) Lipase 35 U/L (12-53) Test 12/25/24 08:35 Urine Color Light-orange (Yellow) Urine Clarity Ex.turbid (Clear) Urine pH 5.5 (5.0-9.0) Urine Specific [place] 1.031 (1.001-1.035) Urine Protein 1+ (Negative) Urine Ketones Negative (Negative) Urine Blood 2+ /uL (Negative) Urine Nitrite Negative (Negative) Urine Bilirubin Negative (Negative) Urine Urobilinogen Normal mg/dL (Negative) Urine Leukocyte Esterase Negative /uL (Negative) Urine RBC 12 /hpf (0 - 3) Urine WBC Clumps Present /hpf (None Seen) Urine Microscopic WBC 141 /HPF (0-3) Urine Squamous Epithelial Cells None seen /hpf (<5) Urine Bacteria None seen /hpf (None Seen) Urine Mucus Few (None Seen) Urine Glucose Trace mg/dL (Normal) Other Laboratory Tests 12/27/24 06:36 12/26/24 04:18 Brief Hx & Hospital Course: 39-year-old male past medical history diabetes kidney stones Lasix surgery chief complaint patient comes in with left flank pain he has been going on 2-1/2 hours prior to arrival he stated it started yesterday it self-resolved but when he was at work the pain got more worse it was like a sharp pain patient states he had this symptom before three years ago that was given him some Flomax and they did a urology procedure he currently denies any chest pain no shortness with the breath denies any blood in urination but difficulty with nerve urination patient states the pain is stabbing movement makes the pain worse nothing improves the pain when in ED patient was given ceftriaxone Flagyl Flomax Zofran normal saline CBC was unremarkable glucose was elevated at 183 AST was 61 ALT mild elevation alkaline phosphatase [address] scan of the abdomen pelvis shows moderate left hydronephrosis secondary to partial obstructing distal stone in the uvj hepatomegaly hepatic steatosis with these findings we will admit and ask for Urology evaluatio. 12/26: Patient here for left obstructing stone with hydronephrosis. Feeling better tolerating p.o. now. We will reassess tomorrow to see need for ultrasound. Diagnosis: Left obstructive nephrolithiasis Intractable flank pain due to above We will intolerance Transaminitis ALP elevated Diabetes History of renal stones Discharge plan: -For pain take Tylenol 1st line, ibuprofen second-line (take Nexium if she finds herself taking the bupropion daily), 3rd line take prescribed [place] 10 up to 3 times daily as needed -For nausea take Zofran as needed to 3 times daily -Take tamsulosin Flomax 0.4 mg once daily, -Take hydration aggressively fluid hydrate to help clear kidney stone -Take strainer home strain urine for next 3-4 days -Follow up with PCP to review discharge. Condition at Discharge: Fair Final Diagnosis/Problems List Left obstructive nephrolithiasis Intractable flank pain due to above We will intolerance Transaminitis ALP elevated Diabetes History of renal stones Discharge Disposition: Home Discharge Instruct/Medications Diet: Regular Activity: No Restrictions, As Tolerated Scheduled Cephalexin (Keflex Capsule), 2 CAP PO QID Metformin Hydrochloride (Metformin Hcl), 1 TAB PO BID, (Reported) Tamsulosin Hcl (Tamsulosin Hcl), 1 CAP PO DAILY Scheduled PRN Hydrocodone-Acetaminophen (Hydrocodone/Acetaminophen 5-325 mg), 1 TAB PO Q6HPRN PRN Hydrocodone-Acetaminophen (Hydrocodone Bitartrate/AC 10-325 mg), 1 TAB PO TIDP PRN Ibuprofen (Ibuprofen), 600 MG PO Q6HPRN PRN Ondansetron Odt 4MG Tab (Zofran Po), 4 MG PO TIDP PRN Discharge Statement: "Patient was advised to return to the ER or call 911 if any headaches, dizziness, shortness of breath, chest pain, abdominal pain, bleeding, fevers, or worsening of medical condition. Patient was counseled about treatment plan, medications, possible side effects, patientverbalized understanding. All questions were answered to the best of my ability. This discharge took greater then 30 minutes in planning, reviewing documentation, counseling the patient, and discussing with other team members." Date of Service: Dec 27, 2024 Billing Provider: CELSO CERVANTES MD Common Visit Codes: [id number] DISCH DAY >30min CELSO CERVANTES MD Dec 27, 2024 16:00
[2024-12-27 18:47] VITALS: BP 143/89; PULSE 90; RESP 20; TEMP 36.4; O2SAT 98
== END 2024-12-27 20:20 | disposition home or self-care (01) | DRG 465 ==
LOC: ER 08:27 → OVERFLOW 12:15 → WEST WING 15:40
PROVIDERS: ADMIT Nurse Practitioner Family; ATTEND Nurse Practitioner Family
DX: N13.2 Hydronephrosis with renal and ureteral calculous obstruction (principal); R16.0 Hepatomegaly, not elsewhere classified; K76.0 Fatty (change of) liver, not elsewhere classified; E11.9 Type 2 diabetes mellitus without complications; Z87.442 Personal history of urinary calculi
CPT/HCPCS: 36415; 74176; 76775; 80053; 81001; 82962; 83605; 83690; 84484; 85025; 96361; 96365; 96375; G0378; J1815; J1885; J2405

== ENCOUNTER 2025-05-08 17:36 | Inpatient (IN) | payer SELFPAY ==
[~2025-05-08] VITALS: Ht 172.7 cm; Wt 115.0 kg
[~2025-05-08 17:36] MED LIST changes: +HYDR-4798 PO; +METF-370 PO; +TAMS0.4C39 PO; +ZOFR4T PO
[2025-05-08 18:35] LABS: Base Excess -1.1 mmol/L (-2.0-3.0)
[2025-05-08 18:50] LABS: Hematocrit 51.0 % (41.0-53.0); Hemoglobin 17.3 g/dL (13.5-17.5); Mean Corpuscular Hemoglobin 28.8 pg (28.0-32.0); Mean Corpuscular Volume 85.0 fL (80.0-100.0); Nucleated Red Blood Cells % 0.0 %
[2025-05-08 19:04] LABS: Albumin 4.6 g/dL (3.2-4.8); Anion Gap 11 (5-15); BUN/Creatinine Ratio 8.0 (10.0-20.0); Calcium 9.5 mg/dL (8.7-10.4); Carbon Dioxide 24 mmol/L (20-31); Chloride 101 mmol/L (98-107); Magnesium 2.1 mg/dL (1.6-2.6); Potassium 3.9 mmol/L (3.5-5.1); Sodium 136 mmol/L (136-145); Total Protein 7.9 g/dL (5.7-8.2)
[2025-05-08 19:05] LABS: Bilirubin, Total 0.7 mg/dL (0.2-1.0)
[2025-05-08 19:10] LABS: Alanine Aminotransferase 100 U/L (7-40); Alkaline Phosphatase 190 U/L (46-116); Blood Urea Nitrogen 8 mg/dL (9-23); Glucose 346 mg/dL (74-106)
[2025-05-08 19:54] LABS: Urine Protein, UAD Negative (Negative)
[2025-05-08] MEDS: SODIUM CHLORIDE 0.9% 1,000 ML IV ONE (20:12)
--- NOTE | 2025-05-08 20:18 | ED.PDOC ---
History of present illness HPI Comments HPI: 40 year old male presents to the ED with a chief compliant of hyperglycemia onset 2 weeks. Patient states he has been experiencing increased thirst, dry mouth for the past 2 weeks as well as hyperglycemia ranging from 250-579. He had lunch and shortly after began experiencing blurred vision, checked BG, was 579. He has also been experiencing BLE cramps. He is compliant with medication of Metformin 500 mg twice a day. Denies fever, chills, nausea, vomiting, diarrhea, dizziness, headache, chest pain, shortness of breath. No other symptoms or modifying factors present at this time. Initial Vitals BP: 136/105 HR: 89 RR: 16 O2 Sat: 95% Temp: 975 F Past Medical history: Dm type II Past Surgical history: eye surgery Medications: Metformin Social History: Denies smoking, ETOH, and drug use. Allergies: NKDA ERIN: DRY MOUTH, BLURRY VISION, CRAMPS, ON METFORMIN, HIGH BLOOD SUGAR AT HOME HPI: Poor Historian. REVIEW OF SYSTEMS: CONSTITUTIONAL: Denies acute: fever, diaphoresis, chills, HEAD: Denies acute: headache, photophobia Eyes: Denies acute: Double vision, vision loss, eye pain, eye discharge. EARS: Denies acute: tinnitus, hearing loss, ear discharge, ear pain, THROAT: Denies acute: sore throat, swelling, difficulty swallowing , pain with swallowing, change in voice. NECK: Denies acute: neck pain, neck swelling, stiff neck. HEART: Denies acute : chest pain, palpitations, LUNGS: Denies acute: SOB, wheezing, cough, hemoptysis ABDOMEN: Denies acute: abdominal pain, Nausea, Vomiting, diarrhea, melena , hematemesis, hematochezia SKIN: Denies acute: rash, redness, lesions, itchiness. EXTREMITIES: Denies acute: calf pain, numbness, tingling, weakness, denies pain in extremity. Denies acute: Low back pain. Neuro: Denies acute: focal neurological deficit, motor or sensory focal neurological deficit, tremors, seizure like activity, confusion, dizziness, change in mental status, loss of bowel or bladder function, cauda equina like symptoms. : Denies acute: dysuria, hematuria, flank pain, increase in urinary frequency. PSYCH: Denies acute: hallucination, suicidal ideation, homicidal ideation. PHYSICAL EXAM: General: -----no---acute distress, awake and alert. Head: normocephalic, atraumatic. No raccoon's eyes, no cunha sign. Neck: supple, trachea is midline, no swelling. Throat: Normal phonation. Eyes:, no erythema, no purulent discharge, no proptosis, no icterus. Heart: regular rate, regular rhythm, no significant murmur appreciated. Lungs: no apparent respiratory distress, Able to speak in full sentences. No wheezing, no rhonchi, no crackles. No stridors Clear to auscultation bilaterally. Abdomen: non tender to palpation, non distended, soft, no guarding, no rebound, + bowel sounds. Obese. Neuro: Awake, Alert, oriented to name, self, situation, follows commands GCS=15. Speech is normal. Skin: no petechia, no purpura, no cyanosis, non-pale, not jaundice. Lower extremities: --no - Pitting edema no deformity, no focal swelling, no calf TTP. Makes eye contact. moves all four extremities. Face: no apparent facial droop. Ambulating in the ED independently. ED COURSE: DISCLAIMER: This medical document was created using an electronic medical record system with voice recognition software and computerized dictation system. Although this document has been carefully reviewed, there might still be some phonetic and typographical errors. Occasional wrong-word or "sound-alike" substitutions may have occurred due to the inherent limitations of voice recognition software. These areas are purely typographical due to imperfections of the software programs and do not reflect any compromise in the patient's medical care. Please read the chart carefully and recognize, using context, where these substitutions have occurred. Chief Complaint: Hyperglycemia Time Seen by MD: 20:00 Primary Care Provider: DENIES History of present illness: Medications, Allergies Allergies: Coded Allergies: NO KNOWN ALLERGIES (Unverified , 03/19/21) Home Meds Active Scripts Hydrocodone-Acetaminophen (Hydrocodone Bitartrate/AC 10-325 mg) 1 Tab Tab, 1 TAB PO TIDP PRN for 7 Days, #21 TAB 0 Refills Prov:CELSO CERVANTES MD 12/27/24 Ondansetron Odt 4MG Tab (ZOFRAN PO) 4 Mg Tb, 4 MG PO TIDP PRN for 7 Days, #21 TAB 0 Refills ODT TAB-DISSOLVE IN MOUTH, THEN SWALLOW Prov:CELSO CERVANTES MD 12/27/24 Tamsulosin Hcl (Tamsulosin Hcl) 0.4 Mg Cap, 1 CAP PO DAILY, #30 CAP 0 Refills Prov:CELSO CERVANTES MD 12/27/24 Hydrocodone-Acetaminophen (Hydrocodone/Acetaminophen 5-325 mg) 1 Tab Tab, 1 TAB PO Q6HPRN PRN for 1 Day, #4 TAB Prov:KATHARINE DICKINSON MD 03/19/21 Ibuprofen (Ibuprofen) 600 Mg Tab, 600 MG PO Q6HPRN PRN for 7 Days, #30 MG 0 Refills Prov:KATHARINE DICKINSON MD 03/19/21 Cephalexin (KEFLEX CAPSULE) 250 Mg Cp, 2 CAP PO QID for 7 Days, #2 CAP Take 2 caps PO QID x 7 days. Prov:KATHARINE DICKINSON MD 03/19/21 Reported Medications Metformin Hydrochloride (Metformin Hcl) 500 Mg Tab, 1 TAB PO BID, #60 TAB 3 Refills 12/25/24 Information Source: Patient Mode of Arrival: Ambulatory Timing: Weeks Duration: Since onset Prehospital treatment: None Past Medical History PAST MEDICAL HISTORY: DM Surgical History: Denies all surgeries Family History Family History: Reviewed,noncontributory to illness Social History Smoker: Non-Smoker Alcohol: Denies ETOH Use Drugs: Denies Drug Use Lives In: Home Was a procedure done? Was a procedure done?: No X-Ray, Labs, Meds, VS Vital Signs Date Time Temp Pulse Resp B/P (MAP) Pulse Ox O2 Delivery O2 Flow Rate FiO2 05/08/25 22:20 97.8 77 18 141/94 (110) 95 97.8 05/08/25 20:02 98.5 84 20 128/84 (99) 96 98.5 05/08/25 17:38 97.7 89 16 136/105 95 97.7 Lab Test 05/08/25 21:13 05/08/25 21:00 05/08/25 20:00 05/08/25 19:13 Range/Units Sodium Level 140 136-145 mmol/L Potassium Level 4.4 3.5-5.1 mmol/L Chloride Level 105 98-107 mmol/L Carbon Dioxide Level 27 20-31 mmol/L Anion Gap 8 5-15 Blood Urea Nitrogen 7 L 9-23 mg/dL Creatinine 0.97 0.700-1.30 mg/dL Glomerular Filtration Rate Calc 101 >90 mL/min BUN/Creatinine Ratio 7.2 L 10.0-20.0 Serum Glucose 269 H 74-106 mg/dL Calcium Level 9.2 8.7-10.4 mg/dL Total Bilirubin 0.8 0.2-1.0 mg/dL Aspartate Amino Transferase (AST) 50 H 13-40 U/L Alanine Aminotransferase (ALT) 95 H 7-40 U/L Alkaline Phosphatase 174 H 46-116 U/L Total Protein 7.5 5.7-8.2 g/dL Albumin 4.5 3.2-4.8 g/dL POC Glucose 310 H 312 H 70-106 mg/dl Urine Color Light-yellow Yellow Urine Clarity Clear Clear Urine pH 5.0 5.0-9.0 Urine Specific [place] 1.043 H 1.001-1.035 Urine Protein Negative Negative Urine Ketones 1+ H Negative Urine Blood Negative Negative /uL Urine Nitrite Negative Negative Urine Bilirubin Negative Negative Urine Urobilinogen Normal Negative mg/dL Urine Leukocyte Esterase Negative Negative /uL Urine RBC 1 0 - 3 /hpf Urine Microscopic WBC 1 0-3 /HPF Urine Squamous Epithelial Cells Few <5 /hpf Urine Bacteria None seen None Seen /hpf Urine Glucose 4+ H Normal mg/dL Test 05/08/25 18:20 05/08/25 18:17 Range/Units Blood Gas Specimen Type Arterial Blood Gas Sample Site Right radial Blood Gas Patient Temperature 37.0 Arterial Blood Date Drawn [id number] Arterial Blood pH 7.406 7.350-7.450 Arterial Blood Partial Pressure CO2 37.6 35.0-48.0 mmHg Arterial Blood Partial Pressure O2 72.0 L 83.0-108.0 mmHg Arterial Blood HCO3 23.1 21.0-28.0 mmol/L Arterial Blood Oxygen Saturation 95.0 94.0-98.0 % Arterial Blood Base Excess -1.1 -2.0-3.0 mmol/L Arterial Blood Oxyhemoglobin 93.4 L 94.0-98.0 % Arterial Blood Carboxyhemoglobin 1.0 0.5-1.5 % Arterial Blood Methemoglobin 0.7 0.0-1.5 % Arterial Blood Deoxyhemoglobin 4.9 0.0-5.0 % Carmelo Test Yes Blood Gas Total Hemoglobin 17.60 H 13.5-17.5 g/dL Blood Gas Modality Room air FiO2 % 21.0 White Blood Count 8.4 4.4-10.8 10^3/uL Red Blood Count 6.00 H 4.5-5.90 10^6/uL Hemoglobin 17.3 13.5-17.5 g/dL Hematocrit 51.0 41.0-53.0 % Mean Corpuscular Volume 85.0 80.0-100.0 fL Mean Corpuscular Hemoglobin 28.8 28.0-32.0 pg Mean Corpuscular Hemoglobin Concent 33.9 32.0-36.0 g/dL Red Cell Distribution Width 13.4 11.8-14.3 % Platelet Count 177 140-450 10^3/uL Mean Platelet Volume 10.0 6.9-10.8 fL Neutrophils (%) (Auto) 49.7 37.0-80.0 % Lymphocytes (%) (Auto) 43.1 10.0-50.0 % Monocytes (%) (Auto) 4.8 0.0-12.0 % Eosinophils (%) (Auto) 1.3 0.0-7.0 % Basophils (%) (Auto) 1.1 0.0-2.0 % Neutrophils # (Auto) 4.2 1.6-8.6 10 ^3/uL Lymphocytes # (Auto) 3.6 0.4-5.4 10 ^3/uL Monocytes # (Auto) 0.4 0-1.3 10 ^3/uL Eosinophils # (Auto) 0.1 0-0.8 10 ^3/uL Basophils # (Auto) 0.1 0-0.2 10 ^3/uL Nucleated Red Blood Cells 0.0 % Platelet Estimate Adequate Clumped Platelets Few Sodium Level 136 136-145 mmol/L Potassium Level 3.9 3.5-5.1 mmol/L Chloride Level 101 98-107 mmol/L Carbon Dioxide Level 24 20-31 mmol/L Anion Gap 11 5-15 Blood Urea Nitrogen 8 L 9-23 mg/dL Creatinine 1.00 0.700-1.30 mg/dL Glomerular Filtration Rate Calc 97 >90 mL/min BUN/Creatinine Ratio 8.0 L 10.0-20.0 Serum Glucose 346 H 74-106 mg/dL Lactic Acid Level 1.2 0.4-2.0 mmol/L Calcium Level 9.5 8.7-10.4 mg/dL Magnesium Level 2.1 1.6-2.6 mg/dL Total Bilirubin 0.7 0.2-1.0 mg/dL Aspartate Amino Transferase (AST) 54 H 13-40 U/L Alanine Aminotransferase (ALT) 100 H 7-40 U/L Alkaline Phosphatase 190 H 46-116 U/L Total Protein 7.9 5.7-8.2 g/dL Albumin 4.6 3.2-4.8 g/dL Beta-Hydroxybutyric Acid 0.365 < 0.4 mmol/L Current Medications Medications (Trade) Dose Ordered Sig/Pavan Route Start Time Stop Time Status Last Admin Sodium Chloride 1,000 ml @ 1,000 mls/hr Q1H ONCE IV 05/08/25 18:15 05/08/25 19:14 DC 05/08/25 20:12 Time of 1ST Reevaluation: 20:30 Reevaluation 1ST: Unchanged Patient Education/Counseling: Diagnosis, Treatment Family Education/Counseling: No Family Present Departure 1 Departure Time of Disposition: 20:21 Impression: Primary Impression: Hyperglycemia due to diabetes mellitus Additional Impressions: Elevated LFTs Uncontrolled diabetes mellitus Disposition: 01 HOME / SELF CARE / HOMELESS Condition: Stable Additional Instructions: Additional instructions: Please read all instructions provided in this packet carefully. You MUST follow-up with your primary care/family doctor in 1 to 2 days. If you are unable to see your primary care/family doctor, please return to our emergency room for re-assessment and re-evaluation in 1 to 2 days. Return to the emergency room here in our facility or to the nearest ER [facility] if your symptoms change or worsen. CONSULTATIONS: you MUST Follow-up for consultation as soon as possible with: -endocrinology in 1-2 days. Please call for appointment. You MUST call the consultants office yourself to make an appointment. You may need to arrange that through your insurance and/or your primary/family doctor. If you are unable to see the it architecture consultant in 1 to 2 days, you must return to our emergency room (or any other ER of your choice) for re-assessment and re- evaluation. Adequate fluid hydration. Although you have been discharged from the Emergency Department, this does not mean that you have a "clean bill of health". No definitive diagnosis for your symptoms has been made today. It is possible that you are in the process of developing a serious illness. This is why you must return to the ED without fail if any new or worsening symptoms develop. Monitoring blood sugar at home at least 3 times a day. Follow a diabetic diet. Discharged With: Self Critical Care Note Critical Care Time?: No I personally scribed for HUGO MADDEN DO ([email or web address]) on 05/08/25 at 20:18. Electronically submitted by Gloria Mon ([email or web address]). HUGO MADDEN DO May 08, 2025 20:18
[2025-05-08 21:54] LABS: Albumin 4.5 g/dL (3.2-4.8); Anion Gap 8 (5-15); BUN/Creatinine Ratio 7.2 (10.0-20.0); Bilirubin, Total 0.8 mg/dL (0.2-1.0); Calcium 9.2 mg/dL (8.7-10.4); Carbon Dioxide 27 mmol/L (20-31); Chloride 105 mmol/L (98-107); Potassium 4.4 mmol/L (3.5-5.1); Sodium 140 mmol/L (136-145); Total Protein 7.5 g/dL (5.7-8.2)
[2025-05-08 21:55] LABS: Alanine Aminotransferase 95 U/L (7-40); Alkaline Phosphatase 174 U/L (46-116); Blood Urea Nitrogen 7 mg/dL (9-23); Glucose 269 mg/dL (74-106)
[2025-05-09] MEDS ORDERED: ONDANSETRON HCL 4 MG/2 ML VIAL IV PRN (00:15)
[2025-05-09] MEDS ORDERED: DEXTROSE (50%) 50ML SYRG IV PRN (00:15)
[2025-05-09] MEDS ORDERED: DOCUSATE SOD 100 MG CAP PO PRN (00:15)
--- NOTE | 2025-05-09 02:28 | DVHHP2 ---
History of Present Illness Reason for Visit: Hyperglycemia due to diabetes mellitus History of Present Illness The patient is a 40-year-old male with past medical history of diabetes mellitus who presented to [facility] ED with complaint of elevated blood glucose for the past 2 weeks. Patient reports that he has been experiencing increased thirst, dry mouth, excessive urination, blurred vision, bilateral lower extremity cramps, checked blood glucose, worse 579 mg/dL, despite compliant with his medication metformin 500 mg 2 times daily. Patient was seen and evaluated in the ED, laboratory data shows WBC 8.4, platelets 177, sodium 140, potassium 4.4, BUN 7, creatinine 0.97, GFR 101, glucose 269, calcium 9.2, AST 50, ALT 95, alkaline phos 174, blood pressure 141/94, heart rate 77, temperature 97.8 F, O2 saturation 95% on room air. Please see medication orders section in the computer. On my assessment, patient denied chest pain, no headache, dizziness, diaphoresis, shortness of breaths, no abdominal pain, diarrhea, nausea, vomiting, fever, no chills. Patient was admitted for further evaluation and medical management. Past Medical History Diabetes mellitus Past Surgical History Eye surgery Family History Reviewed, noncontributory to the management of this case. Past Social History The patient lives at home, denies smoking, alcohol or illicit drugs abuse. Review of Systems Constitutional: Yes: Weakness; No: Fever, Chills, Sweats, Malaise, Other Eyes: No: Pain, Vision change, Conjunctivae inflammation, Eyelid inflammation, Other, Redness ENT: No: Ear pain, Ear discharge, Nose pain, Nose discharge, Nose congestion, Mouth pain, Mouth swelling, Throat pain, Throat swelling, Other Respiratory: No: Cough, Dry, Shortness of breath, SOB with excertion, Wheezing, Hemoptysis, Pleuritic Pain, Sputum, Wheezing, Other Cardiovascular: No: Chest Pain, Palpitations, Orthopnea, Paroxysmal Noc. Dyspnea, Edema, Lt Headedness, Other Gastrointestinal: No: Nausea, Vomiting, Abdominal Pain, Diarrhea, Constipation, Melena, Hematochezia, Other Genitourinary: No Dysuria, No Frequency, No Incontinence, No Hematuria, No Retention, No Other Musculoskeletal: No: other, neck pain, shoulder pain, arm pain, back pain, hand pain, leg pain, foot pain Skin: No: Rash, Lesions, Jaundice, Bruising, Other Neurological: No: Weakness, Numbness, Incoordination, Change in speech, Confusion, Seizures, Other Allergies: Coded Allergies: NO KNOWN ALLERGIES (Unverified , 03/19/21) Medications Current Medications Medications Dose Ordered Sig/Pavan Route Start Time Stop Time Status Last Admin Dose Admin Diagnostic Test (Pha) 1 strip IQ4HR 05/09/25 04:00 Insulin Human Regular IQ4HR SC 05/09/25 04:00 Dextrose 50 ml UD PRN IV 05/09/25 00:15 Sodium Chloride 10 ml Q8HR IV 05/09/25 06:00 Acetaminophen/ Hydrocodone Bitart 1 tab Q4HP PRN PO 05/09/25 00:15 Ondansetron HCl 4 mg Q4HP PRN IV 05/09/25 00:15 Docusate Sodium 100 mg BIDPRN PRN PO 05/09/25 00:15 Acetaminophen 650 mg Q6HP PRN PO 05/09/25 00:15 Exam Vital Signs Vital Signs Date Time Temp Pulse Resp B/P (MAP) Pulse Ox O2 Delivery O2 Flow Rate FiO2 05/09/25 01:04 98.6 74 20 131/81 (98) 97 98.6 General Appearance: Alert, Oriented X3, Cooperative, No acute distress HEENT: Atraumatic, PERRLA, EOMI, Mucous membr. moist/pink Respiratory: Clear to auscultation, Normal air movement Cardiovascular: Regular rate, Normal S1, Normal S2, No murmurs Abdominal: Normal bowel sounds, Soft, No tenderness, No hepatospenomegaly, No masses Extremities: No clubbing, No cyanosis, No edema, Normal pulses, No tenderness/swelling Skin: No rashes, No breakdown, No significant lesion Neuro: Normal gait, Normal speech, Strength at 5/5 X4 ext, Normal tone, Sensation intact, Cranial nerves 3-12 NL, Reflexes 2+, Other (Generalized weakness) Psych/Mental Status: Mental status NL, Mood NL Labs/Xrays Labs Test 05/08/25 21:13 05/08/25 21:00 05/08/25 19:13 05/08/25 18:20 Range/Units Sodium Level 140 136-145 mmol/L Potassium Level 4.4 3.5-5.1 mmol/L Chloride Level 105 98-107 mmol/L Carbon Dioxide Level 27 20-31 mmol/L Anion Gap 8 5-15 Blood Urea Nitrogen 7 L 9-23 mg/dL Creatinine 0.97 0.700-1.30 mg/dL Glomerular Filtration Rate Calc 101 >90 mL/min BUN/Creatinine Ratio 7.2 L 10.0-20.0 Serum Glucose 269 H 74-106 mg/dL Calcium Level 9.2 8.7-10.4 mg/dL Total Bilirubin 0.8 0.2-1.0 mg/dL Aspartate Amino Transferase (AST) 50 H 13-40 U/L Alanine Aminotransferase (ALT) 95 H 7-40 U/L Alkaline Phosphatase 174 H 46-116 U/L Total Protein 7.5 5.7-8.2 g/dL Albumin 4.5 3.2-4.8 g/dL POC Glucose 310 H 70-106 mg/dl Urine Color Light-yellow Yellow Urine Clarity Clear Clear Urine pH 5.0 5.0-9.0 Urine Specific [place] 1.043 H 1.001-1.035 Urine Protein Negative Negative Urine Ketones 1+ H Negative Urine Blood Negative Negative /uL Urine Nitrite Negative Negative Urine Bilirubin Negative Negative Urine Urobilinogen Normal Negative mg/dL Urine Leukocyte Esterase Negative Negative /uL Urine RBC 1 0 - 3 /hpf Urine Microscopic WBC 1 0-3 /HPF Urine Squamous Epithelial Cells Few <5 /hpf Urine Bacteria None seen None Seen /hpf Urine Glucose 4+ H Normal mg/dL Blood Gas Specimen Type Arterial Blood Gas Sample Site Right radial Blood Gas Patient Temperature 37.0 Arterial Blood Date Drawn [id number] Arterial Blood pH 7.406 7.350-7.450 Arterial Blood Partial Pressure CO2 37.6 35.0-48.0 mmHg Arterial Blood Partial Pressure O2 72.0 L 83.0-108.0 mmHg Arterial Blood HCO3 23.1 21.0-28.0 mmol/L Arterial Blood Oxygen Saturation 95.0 94.0-98.0 % Arterial Blood Base Excess -1.1 -2.0-3.0 mmol/L Arterial Blood Oxyhemoglobin 93.4 L 94.0-98.0 % Arterial Blood Carboxyhemoglobin 1.0 0.5-1.5 % Arterial Blood Methemoglobin 0.7 0.0-1.5 % Arterial Blood Deoxyhemoglobin 4.9 0.0-5.0 % Carmelo Test Yes Blood Gas Total Hemoglobin 17.60 H 13.5-17.5 g/dL Blood Gas Modality Room air FiO2 % 21.0 Test 05/08/25 18:17 Range/Units White Blood Count 8.4 4.4-10.8 10^3/uL Red Blood Count 6.00 H 4.5-5.90 10^6/uL Hemoglobin 17.3 13.5-17.5 g/dL Hematocrit 51.0 41.0-53.0 % Mean Corpuscular Volume 85.0 80.0-100.0 fL Mean Corpuscular Hemoglobin 28.8 28.0-32.0 pg Mean Corpuscular Hemoglobin Concent 33.9 32.0-36.0 g/dL Red Cell Distribution Width 13.4 11.8-14.3 % Platelet Count 177 140-450 10^3/uL Mean Platelet Volume 10.0 6.9-10.8 fL Neutrophils (%) (Auto) 49.7 37.0-80.0 % Lymphocytes (%) (Auto) 43.1 10.0-50.0 % Monocytes (%) (Auto) 4.8 0.0-12.0 % Eosinophils (%) (Auto) 1.3 0.0-7.0 % Basophils (%) (Auto) 1.1 0.0-2.0 % Neutrophils # (Auto) 4.2 1.6-8.6 10 ^3/uL Lymphocytes # (Auto) 3.6 0.4-5.4 10 ^3/uL Monocytes # (Auto) 0.4 0-1.3 10 ^3/uL Eosinophils # (Auto) 0.1 0-0.8 10 ^3/uL Basophils # (Auto) 0.1 0-0.2 10 ^3/uL Nucleated Red Blood Cells 0.0 % Platelet Estimate Adequate Clumped Platelets Few Lactic Acid Level 1.2 0.4-2.0 mmol/L Magnesium Level 2.1 1.6-2.6 mg/dL Beta-Hydroxybutyric Acid 0.365 < 0.4 mmol/L SEPSIS Sepsis Screen Date sepsis recognized/suspect: May 08, 2025 Time Sepsis recognized/suspect: 2001 Recent Procedure: No On Antibiotic Therapy: No Respiratory Rate >20: No Heart Rate >90: No Temp<36 C (96.8 F) or >38.3 C: No SBP <90 or MAP <65 mmHG: No New Acute Mental Status Change: No Is the patient on CPAP, BIPAP,: No Physician Orders Complete Blood Count (05/09/25 04:00) Comprehensive Metabolic Panel (05/09/25 04:00) Consistent Carb(Ccho)Diabetes (05/09/25 Breakfast) Glucose Blood (Accu-Chek Comfort Curve T (05/09/25 04:00) Insulin R (Human) (Insulin R) (05/09/25 04:00) Dextrose 50% Syringe (05/09/25 00:15) Allergies (05/09/25 00:01) Code Status (05/09/25 00:01) Sodium Chloride Lock (Saline Lock Ns) (05/09/25 06:00) Oxygen Per Hour (05/09/25 00:01) Hydrocodone-Acet 5/325mg Tab ([place] 5/32 (05/09/25 00:15) Ondansetron Hcl (Zofran) (05/09/25 00:15) Docusate Sodium Capsule (Colace Capsule) (05/09/25 00:15) Complete Blood Count (05/10/25 04:00) Comprehensive Metabolic Panel (05/10/25 04:00) Condition: Serious (05/09/25 00:01) Acetaminophen Tablet (Tylenol Tablet) (05/09/25 00:15) Bedrest With Bathroom Privileg (05/09/25 00:01) Maintain Bed Rest (05/09/25 00:01) Sequential Compression Device (05/09/25 ) Admit (05/09/25 02:26) Nitroglycerin Sublingual (Ntrostat Subli (05/09/25 02:30) Morphine Sulfate Injection (05/09/25 02:30) Stat Ekg For Chest Pain (05/09/25 02:26) Notify Md Of Changes From Base (05/09/25 02:26) Assistant Product Manager For 24 Hours (05/09/25 02:26) Emergency Dysrhythmia Protocol (05/09/25 02:26) Rhythm Strips Once Every Shift (05/09/25 02:26) Oxygen By Nasal Cannula (05/09/25 02:26) Vital Signs Date Time Temp Pulse Resp B/P (MAP) Pulse Ox O2 Delivery O2 Flow Rate FiO2 05/09/25 01:04 98.6 74 20 131/81 (98) 97 98.6 05/09/25 00:20 72 18 140/103 (115) 95 05/08/25 22:20 97.8 77 18 141/94 (110) 95 97.8 05/08/25 20:02 98.5 84 20 128/84 (99) 96 98.5 Laboratory Tests Test 05/08/25 18:17 Lactic Acid Level 1.2 mmol/L (0.4-2.0) White Blood Count 8.4 10^3/uL (4.4-10.8) Medications Medications Dose Ordered Sig/Pavan Route Start Time Stop Time Status Last Admin Dose Admin Sodium Chloride 1,000 ml @ 1,000 mls/hr Q1H ONCE IV 05/08/25 18:15 05/08/25 19:14 DC 05/08/25 20:12 1,000 MLS/HR Assessment/Plan Assessment/Plan Hyperglycemia due to diabetes mellitus Elevated liver enzymes Uncontrolled diabetes mellitus Generalized weakness Plan 1. Admit to telemetry unit 2. Breathing treatment 3. Pain control management 4. Management of fluids and electrolytes 5. Consultation for hospitalist 6. Diagnostic tests chest x-ray 7. DVT prophylaxis on SCDs 8. Repeat labs CBC, CMP in a.m. 9. Continue with current medical management 10. Treatment plan discussed with patient and RN. Patient verbalized understanding. Plan discussed with: Patient, Other (RN) My Orders Orders - NEHAL SAMUELS DNP Procedure Category Date Status Time Complete Blood Count LAB 05/09/25 Logged 04:00 Comprehensive LAB 05/09/25 Logged Metabolic Panel 04:00 Consistent DIET 05/09/25 Transmitted Carb(Ccho)Diabetes Breakfast Glucose Blood PHA 05/09/25 In Process (Accu-Chek Comfort 04:00 Insulin R (Human) PHA 05/09/25 In Process (Insulin R) 04:00 Dextrose 50% Syringe PHA 05/09/25 In Process 00:15 Allergies TONEY 05/09/25 In Process 00:01 Code Status CODE 05/09/25 Transmitted 00:01 Sodium Chloride Lock PHA 05/09/25 In Process (Saline Lock Ns) 06:00 Oxygen Per Hour RT 05/09/25 Transmitted 00:01 Hydrocodone-Acet PHA 05/09/25 In Process 5/325mg Tab ([place] 00:15 Ondansetron Hcl PHA 05/09/25 In Process (Zofran) 00:15 Docusate Sodium [facility] 05/09/25 In Process Capsule (Colace 00:15 Complete Blood Count LAB 05/10/25 Verified 04:00 Comprehensive LAB 05/10/25 Verified Metabolic Panel 04:00 Condition: Serious [facility] 05/09/25 In Process 00:01 Acetaminophen Tablet [facility] 05/09/25 In Process (Tylenol Tablet) 00:15 Bedrest With Bathroom [facility] 05/09/25 In Process Privileg 00:01 Maintain Bed Rest [facility] 05/09/25 In Process 00:01 Sequential [facility] 05/09/25 In Process Compression Device Admit ADMIT 05/09/25 Verified 02:26 Nitroglycerin [facility] 05/09/25 Verified Sublingual (Ntrostat 02:30 Morphine Sulfate [facility] 05/09/25 Verified Injection 02:30 Stat Ekg For Chest [facility] 05/09/25 Verified Pain 02:26 Notify Md Of Changes [facility] 05/09/25 Verified From Base 02:26 Assistant Product Manager For [facility] 05/09/25 Verified 24 Hours 02:26 Emergency Dysrhythmia [facility] 05/09/25 Verified Protocol 02:26 Rhythm Strips Once [facility] 05/09/25 Verified Every Shift 02:26 Oxygen By Nasal RT 05/09/25 Verified Cannula 02:26 Problem List: (1) Hyperglycemia due to diabetes mellitus (2) Elevated liver enzymes (3) Uncontrolled diabetes mellitus (4) Generalized weakness Date of Service: May 09, 2025 Billing Provider: NEHAL SAMUELS DNP Common Visit Codes: [id number] INP/OBS CARE (HIGH) NEHAL SAMUELS DNP May 09, 2025 02:28
[2025-05-09] MEDS ORDERED: NITROGLYCERIN 0.4 MG SL TAB SL PRN (02:30)
[2025-05-09] MEDS ORDERED: MORPHINE SULFATE INJ 2 MG/ml SYRG IV PRN (02:30)
[2025-05-09] MEDS: InsuLIN REG 1unit/0.01ml Soln (100units/ml) SC SCH (03:17)
[2025-05-09] MEDS: ACCU-CHEK COMFORT CURVE STRIP VI SCH (03:33)
[2025-05-09] MEDS: HYDROcodone-ACET 5/325MG TAB PO PRN (03:33)
[2025-05-09 03:45] VITALS: BP 130/82; PULSE 68; RESP 18; TEMP 98.2; O2SAT 95
[2025-05-09 03:46] LABS: Hematocrit 47.0 % (41.0-53.0); Hemoglobin 16.0 g/dL (13.5-17.5); Mean Corpuscular Hemoglobin 29.2 pg (28.0-32.0); Mean Corpuscular Volume 85.7 fL (80.0-100.0); Nucleated Red Blood Cells % 0.2 %
[2025-05-09 03:53] LABS: Albumin 4.1 g/dL (3.2-4.8); Anion Gap 11 (5-15); BUN/Creatinine Ratio 13.3 (10.0-20.0); Blood Urea Nitrogen 11 mg/dL (9-23); Calcium 9.0 mg/dL (8.7-10.4); Carbon Dioxide 25 mmol/L (20-31); Chloride 100 mmol/L (98-107); Potassium 4.1 mmol/L (3.5-5.1); Sodium 136 mmol/L (136-145); Total Protein 6.9 g/dL (5.7-8.2)
[2025-05-09 03:54] LABS: Bilirubin, Total 1.0 mg/dL (0.2-1.0)
[2025-05-09 04:02] LABS: Alanine Aminotransferase 93 U/L (7-40); Alkaline Phosphatase 160 U/L (46-116); Glucose 253 mg/dL (74-106)
[2025-05-09 05:54] VITALS: BP 131/89; PULSE 68; RESP 17; TEMP 97.9; O2SAT 96
[2025-05-09] MEDS ORDERED: SODIUM CHLOR 0.9% PF (SALINE LOCK) 10ML VIAL/SYR IV SCH (06:00)
[2025-05-09 08:00] VITALS: PULSE 67; RESP 17; O2SAT 98
[2025-05-09 09:00] VITALS: BP 115/76; PULSE 67; RESP 17; TEMP 97.8; O2SAT 98
[2025-05-09 12:58] VITALS: BP 116/87; PULSE 75; RESP 17; TEMP 97.8; O2SAT 95
--- NOTE | 2025-05-09 14:39 | DVHPN2 ---
Reviewed: H&P Changes from previous H/P or p: No Changes General: Per HPI Eyes: No Pain, No Vision change, No Conjunctivae inflammation, No Eyelid inflammation, No Other, No Redness ENT: No Ear pain, No Ear discharge, No Nose pain, No Nose discharge, No Nose congestion, No Mouth pain, No Mouth swelling, No Throat pain, No Throat swelling, No Other Cardiovascular: No Chest Pain, No Palpitations, No Orthopnea, No Paroxysmal Noc. Dyspnea, No Edema, No Lt Headedness, No Other Respiratory: No Cough, No Dry, No Shortness of breath, No SOB with excertion, No Wheezing, No Hemoptysis, No Pleuritic Pain, No Sputum, No Other Gastrointestinal: No Nausea, No Vomiting, No Abdominal Pain, No Diarrhea, No Constipation, No Melena, No Hematochezia, No Other Genitourinary: No Dysuria, No Frequency, No Incontinence, No Hematuria, No Retention, No Other Musculoskeletal: No other, No neck pain, No shoulder pain, No arm pain, No back pain, No hand pain, No leg pain, No foot pain Skin: No Rash, No Lesions, No Jaundice, No Bruising, No Other Objective Vitals Vital Signs Date Time Temp Pulse Resp B/P (MAP) Pulse Ox O2 Delivery O2 Flow Rate FiO2 05/09/25 12:58 97.8 75 17 116/87 (97) 95 97.8 05/09/25 08:00 Room Air* 0 21 Exam GEN: Healthy appearing, well-developed, NAD. HEENT: NC/AT; MMM. CV: RRR, no m/r/g. LUNGS: CTAB, no w/r/c. ABD: Soft, NT/ND, NBS, no masses or organomegaly. EXT: skin Warm, well perfused. no rashes. No clubbing, cyanosis, or edema. NEURO: Ambulating with no limitations. No focal deficits. Medications Current Medications Medications Dose Ordered Sig/Pavan Route Start Time Stop Time Status Last Admin Dose Admin Diagnostic Test (Pha) 1 strip IQ4HR 05/09/25 04:00 05/09/25 12:00 1 STRIP Insulin Human Regular IQ4HR SC 05/09/25 04:00 05/09/25 13:13 9 UNITS Dextrose 50 ml UD PRN IV 05/09/25 00:15 Sodium Chloride 10 ml Q8HR IV 05/09/25 06:00 Acetaminophen/ Hydrocodone Bitart 1 tab Q4HP PRN PO 05/09/25 00:15 05/09/25 03:33 1 TAB Ondansetron HCl 4 mg Q4HP PRN IV 05/09/25 00:15 Docusate Sodium 100 mg BIDPRN PRN PO 05/09/25 00:15 Acetaminophen 650 mg Q6HP PRN PO 05/09/25 00:15 Laboratory Results Laboratory Tests 05/09/25 02:41 Chemistry Test 05/08/25 18:17 05/08/25 21:13 05/09/25 02:41 Albumin 4.6 g/dL (3.2-4.8) 4.5 g/dL (3.2-4.8) 4.1 g/dL (3.2-4.8) Calcium Level 9.5 mg/dL (8.7-10.4) 9.2 mg/dL (8.7-10.4) 9.0 mg/dL (8.7-10.4) Magnesium Level 2.1 mg/dL (1.6-2.6) Total Protein 7.9 g/dL (5.7-8.2) 7.5 g/dL (5.7-8.2) 6.9 g/dL (5.7-8.2) LFT Test 05/08/25 18:17 05/08/25 21:13 05/09/25 02:41 Alanine Aminotransferase (ALT) 100 U/L (7-40) H 95 U/L (7-40) H 93 U/L (7-40) H Alkaline Phosphatase 190 U/L (46-116) H 174 U/L (46-116) H 160 U/L (46-116) H Aspartate Amino Transferase (AST) 54 U/L (13-40) H 50 U/L (13-40) H 61 U/L (13-40) H Total Bilirubin 0.7 mg/dL (0.2-1.0) 0.8 mg/dL (0.2-1.0) 1.0 mg/dL (0.2-1.0) HgA1c, TSH Test 05/09/25 02:41 Hemoglobin A1c Pending Urinalysis Test 05/08/25 19:13 Urine Color Light-yellow (Yellow) Urine Clarity Clear (Clear) Urine pH 5.0 (5.0-9.0) Urine Specific [place] 1.043 (1.001-1.035) Urine Protein Negative (Negative) Urine Ketones 1+ (Negative) H Urine Blood Negative /uL (Negative) Urine Nitrite Negative (Negative) Urine Bilirubin Negative (Negative) Urine Urobilinogen Normal mg/dL (Negative) Urine Leukocyte Esterase Negative /uL (Negative) Urine RBC 1 /hpf (0 - 3) Urine Microscopic WBC 1 /HPF (0-3) Urine Squamous Epithelial Cells Few /hpf (<5) Urine Bacteria None seen /hpf (None Seen) Urine Glucose 4+ mg/dL (Normal) H Blood Gas Results Test 05/08/25 18:20 Arterial Blood pH 7.406 (7.350-7.450) FiO2 % 21.0 Labs and/or images reviewed: Labs reviewed by me, Image(s) reviewed by me Assessment/Plan Assessment/Plan 40-year-old male with past medical history of diabetes mellitus who presented to [facility] ED with complaint of elevated blood glucose for the past 2 weeks. Patient reports that he has been experiencing increased thirst, dry mouth, excessive urination, blurred vision, bilateral lower extremity cramps, checked blood glucose, worse 579 mg/dL, despite compliant with his medication metformin 500 mg 2 times daily. 05/09: Patient presents in for diabetes with hyperglycemia, likely dietary noncompliance. Patient likely has Loyd, LFTs elevated. We will check A1c, patient is here with hyperglycemia. Patient has noncompliant with diet. We will increase metformin to 1000 b.i.d., add Jardiance 10, and we will likely need Lantus if A1c more than 10. Lantus dose plan for 8 units nightly. We will likely discharge patient today, patient will need close follow up with DC clinic 1 week, needs to set up PCP 1-2 weeks, care consult order. Diagnosis: Hyperglycemia due to diabetes mellitus Elevated liver enzymes, likely LOYD Uncontrolled diabetes mellitus Generalized weakness plan: -SSI - continue home meds tele full code Plan discussed with: Patient My Orders Orders - CELSO CERVANTES MD Procedure Category Date Status Time Hemoglobin A1c LAB 05/09/25 In Process 14:27 Abdomen Limited US 05/09/25 Logged 14:27 Date of Service: May 09, 2025 Billing Provider: CELSO CERVANTES MD Common Visit Codes: [id number] INP/OBS CARE(HIGH) CELSO CERVANTES MD May 09, 2025 14:39
[2025-05-09] MEDS: ACETAMINOPHEN 325 MG TAB PO PRN (15:14)
[2025-05-09 16:30] VITALS: BP 114/82; PULSE 78; RESP 16; TEMP 97.8; O2SAT 96
--- NOTE | 2025-05-09 17:12 | DVHDS2 ---
Discharge Summary Date of Admission May 09, 2025 at 02:26 Date of Discharge: May 09, 2025 Labs/Diagnostic Data: Laboratory Results Test 05/09/25 12:14 05/09/25 02:41 05/08/25 19:13 05/08/25 18:20 POC Glucose 272 mg/dl (70-106) White Blood Count 6.9 10^3/uL (4.4-10.8) Red Blood Count 5.48 10^6/uL (4.5-5.90) Hemoglobin 16.0 g/dL (13.5-17.5) Hematocrit 47.0 % (41.0-53.0) Mean Corpuscular Volume 85.7 fL (80.0-100.0) Mean Corpuscular Hemoglobin 29.2 pg (28.0-32.0) Mean Corpuscular Hemoglobin Concent 34.0 g/dL (32.0-36.0) Red Cell Distribution Width 13.3 % (11.8-14.3) Platelet Count 163 10^3/uL (140-450) Mean Platelet Volume 9.6 fL (6.9-10.8) Neutrophils (%) (Auto) 42.6 % (37.0-80.0) Lymphocytes (%) (Auto) 48.7 % (10.0-50.0) Monocytes (%) (Auto) 5.6 % (0.0-12.0) Eosinophils (%) (Auto) 2.4 % (0.0-7.0) Basophils (%) (Auto) 0.7 % (0.0-2.0) Neutrophils # (Auto) 2.9 10 ^3/uL (1.6-8.6) Lymphocytes # (Auto) 3.3 10 ^3/uL (0.4-5.4) Monocytes # (Auto) 0.4 10 ^3/uL (0-1.3) Eosinophils # (Auto) 0.2 10 ^3/uL (0-0.8) Basophils # (Auto) 0 10 ^3/uL (0-0.2) Nucleated Red Blood Cells 0.2 % Sodium Level 136 mmol/L (136-145) Potassium Level 4.1 mmol/L (3.5-5.1) Chloride Level 100 mmol/L (98-107) Carbon Dioxide Level 25 mmol/L (20-31) Anion Gap 11 (5-15) Blood Urea Nitrogen 11 mg/dL (9-23) Creatinine 0.83 mg/dL (0.700-1.30) Glomerular Filtration Rate Calc 113 mL/min (>90) BUN/Creatinine Ratio 13.3 (10.0-20.0) Serum Glucose 253 mg/dL (74-106) Hemoglobin A1c 12.7 % A1C (<5.7) Calcium Level 9.0 mg/dL (8.7-10.4) Total Bilirubin 1.0 mg/dL (0.2-1.0) Aspartate Amino Transferase (AST) 61 U/L (13-40) Alanine Aminotransferase (ALT) 93 U/L (7-40) Alkaline Phosphatase 160 U/L (46-116) Total Protein 6.9 g/dL (5.7-8.2) Albumin 4.1 g/dL (3.2-4.8) Urine Color Light-yellow (Yellow) Urine Clarity Clear (Clear) Urine pH 5.0 (5.0-9.0) Urine Specific [place] 1.043 (1.001-1.035) Urine Protein Negative (Negative) Urine Ketones 1+ (Negative) Urine Blood Negative /uL (Negative) Urine Nitrite Negative (Negative) Urine Bilirubin Negative (Negative) Urine Urobilinogen Normal mg/dL (Negative) Urine Leukocyte Esterase Negative /uL (Negative) Urine RBC 1 /hpf (0 - 3) Urine Microscopic WBC 1 /HPF (0-3) Urine Squamous Epithelial Cells Few /hpf (<5) Urine Bacteria None seen /hpf (None Seen) Urine Glucose 4+ mg/dL (Normal) Blood Gas Specimen Type Arterial Blood Gas Sample Site Right radial Blood Gas Patient Temperature 37.0 Arterial Blood Date Drawn [id number] Arterial Blood pH 7.406 (7.350-7.450) Arterial Blood Partial Pressure CO2 37.6 mmHg (35.0-48.0) Arterial Blood Partial Pressure O2 72.0 mmHg (83.0-108.0) Arterial Blood HCO3 23.1 mmol/L (21.0-28.0) Arterial Blood Oxygen Saturation 95.0 % (94.0-98.0) Arterial Blood Base Excess -1.1 mmol/L (-2.0-3.0) Arterial Blood Oxyhemoglobin 93.4 % (94.0-98.0) Arterial Blood Carboxyhemoglobin 1.0 % (0.5-1.5) Arterial Blood Methemoglobin 0.7 % (0.0-1.5) Arterial Blood Deoxyhemoglobin 4.9 % (0.0-5.0) Carmelo Test Yes Blood Gas Total Hemoglobin 17.60 g/dL (13.5-17.5) Blood Gas Modality Room air FiO2 % 21.0 Test 05/08/25 18:17 Platelet Estimate Adequate Clumped Platelets Few Lactic Acid Level 1.2 mmol/L (0.4-2.0) Magnesium Level 2.1 mg/dL (1.6-2.6) Beta-Hydroxybutyric Acid 0.365 mmol/L (< 0.4) Other Laboratory Tests 05/09/25 02:41 Brief Hx & Hospital Course: 40-year-old male with past medical history of diabetes mellitus who presented to [facility] ED with complaint of elevated blood glucose for the past 2 weeks. Patient reports that he has been experiencing increased thirst, dry mouth, excessive urination, blurred vision, bilateral lower extremity cramps, checked blood glucose, worse 579 mg/dL, despite compliant with his medication metformin 500 mg 2 times daily. 05/09: Patient presents in for diabetes with hyperglycemia, likely dietary noncompliance. Patient likely has Loyd, LFTs elevated. We will check A1c, patient is here with hyperglycemia. Patient has noncompliant with diet. We will increase metformin to 1000 b.i.d., add Jardiance 10, and we will likely need Lantus if A1c more than 10. Lantus dose plan for 8 units nightly. We will likely discharge patient today, patient will need close follow up with DC clinic 1 week, needs to set up PCP 1-2 weeks, care consult order. Diagnosis: Hyperglycemia due to diabetes mellitus Elevated liver enzymes, likely LOYD Uncontrolled diabetes mellitus Generalized weakness plan: -Metformin 1000 b.i.d. -Strict dietary compliance , low carb diet, hydrate well -Jardiance 10 daily -Lantus 8 nightly, sliding scale insulin novolog -PCP set up, consult district manager primary care sales ordered -PCP to get stat right upper quadrant ultrasound next week. Follow up with CMP to trend liver panel -DC clinic follow up 1 week, - return to nearest ED if abdominal pain develops. Condition at Discharge: Fair Final Diagnosis/Problems List Hyperglycemia due to diabetes mellitus Elevated liver enzymes, likely LOYD Uncontrolled diabetes mellitus Generalized weakness Discharge Disposition: Home Discharge Instruct/Medications Scheduled Metformin Hydrochloride (Metformin Hcl), 1 TAB PO BID, (Reported) Scheduled PRN Ibuprofen (Ibuprofen), 600 MG PO Q6HPRN PRN Discharge Statement: "Patient was advised to return to the ER or call 911 if any headaches, dizziness, shortness of breath, chest pain, abdominal pain, bleeding, fevers, or worsening of medical condition. Patient was counseled about treatment plan, medications, possible side effects, patientverbalized understanding. All questions were answered to the best of my ability. This discharge took greater then 30 minutes in planning, reviewing documentation, counseling the patient, and discussing with other team members." ASSESSMENT ASSESSMENT Assessment Date of Service: May 09, 2025 Billing Provider: CELSO CERVANTES MD Common Visit Codes: [id number] DISCH DAY >30min CELSO CERVANTES MD May 09, 2025 17:11
[2025-05-09] MEDS ORDERED: EMPA1TAB PO (17:14)
[2025-05-09] MEDS ORDERED: INSU100I61 SC (17:14)
[2025-05-09] MEDS ORDERED: METF-490 PO (17:14)
[2025-05-09] MEDS ORDERED: INSUINJ37 SC (17:14)
== END 2025-05-09 18:37 | disposition home or self-care (01) | DRG 639 ==
LOC: ER 17:36 → OVERFLOW 05-09 02:26 → TELE-WESTW 05-09 02:28
PROVIDERS: ADMIT Nurse Practitioner Family; ATTEND Nurse Practitioner Family
DX: E11.65 Type 2 diabetes mellitus with hyperglycemia (principal); K75.81 Nonalcoholic steatohepatitis (NASH); R74.8 Abnormal levels of other serum enzymes; R79.89 Other specified abnormal findings of blood chemistry; Z79.84 Long term (current) use of oral hypoglycemic drugs; Z91.119 Patient's noncompliance with dietary regimen due to unspecified reason
CPT/HCPCS: 36415; 36600; 80053; 81001; 82010; 82805; 82962; 83036; 83605; 83735; 85025; 96360; G0378; J1815